=== PATIENT | male | born 1965 | race Hispanic/Latino ===

== ENCOUNTER → 2018-06-30 | Outpatient (CLI) | payer BC | END | disposition home or self-care (01) | LOC: SHCH 11:30 | PROVIDERS: ATTEND Internal Medicine Cardiovascular Disease | DX: I45.10 Unspecified right bundle-branch block (principal) | CPT/HCPCS: 93306 ==

== ENCOUNTER → 2018-07-08 | Outpatient (CLI) | payer BC ==
[~2018-07-08] MED LIST: REGADENOSON 0.4 MG/5 ML PF SYG IVP SCH
== END | disposition home or self-care (01) ==
LOC: EDUNIT# 07-01 08:40 → SHCH 08:30
PROVIDERS: ATTEND Internal Medicine Cardiovascular Disease
DX: I45.10 Unspecified right bundle-branch block (principal); R00.2 Palpitations
CPT/HCPCS: 78452; 93017; 96374; A9500 ×2